=== PATIENT | male | born 1960 | race Caucasian/White ===

== ENCOUNTER 2016-04-22 06:11 | Day surgery (SDC) | payer OTHER ==
[~2016-04-22 06:11] MED LIST: IV START KIT ONE; LACTATED RINGERS 1,000 ML ONE
[2016-04-22] MEDS ORDERED: LIDOCAINE 2% (PRES FREE) 5 ML VIAL ONE (06:41)
[2016-04-22] MEDS ORDERED: PROPOFOL 40 ML IV ONE (06:41)
[2016-04-22] MEDS ORDERED: MIDAZOLAM HCL 5 MG/5 ML VIAL IV PRN (07:07)
[2016-04-22] MEDS ORDERED: FENTANYL 250 MCG/5 ML AMP IV PRN (07:07)
== END 2016-04-22 08:02 | disposition home or self-care (01) ==
LOC: SDC 06:11
PROVIDERS: ATTEND Family Medicine
PROC: 0DJD8ZZ Inspection of Lower Intestinal Tract, Via Natural or Artificial Opening Endoscopic (ICD-10-PCS; principal; 2016-04-22)
DX: Z12.11 Encounter for screening for malignant neoplasm of colon (principal); K21.9 Gastro-esophageal reflux disease without esophagitis; I10 Essential (primary) hypertension; I83.90 Asymptomatic varicose veins of unspecified lower extremity; N40.0 Benign prostatic hyperplasia without lower urinary tract symptoms